=== PATIENT | female | born 1970 | race African-American/Black ===

== ENCOUNTER → 2016-06-08 | Outpatient (CLI) | payer BC ==
--- NOTE | 2016-06-08 16:54 | KCIC ---
PROCEDURE Bilateral screening mammogram HISTORY 45-year-old female presents for annual screening mammogram. COMPARISON March 06, 2015, November 09, 2011 FINDINGS Bilateral digital mammograms are obtained with CAD. The breasts are heterogeneously dense, which can obscure small masses (tissue density C). No dominant suspicious mass, suspicious microcalcifications, or architecture distortion is identified in either breast. IMPRESSION Benign findings. Recommend screening mammogram in 1 year. BI-RADS category 2: Benign findings The patient information was entered into a reminder system with a target due date for the next mammogram. Mammography is not 100% sensitive in detecting breast cancer. Therefore, a self breast exam and a clinical breast exam are very important. A negative mammogram does not negate a clinically suspicious finding and should not result in a delay in biopsying a clinically suspicious abnormality. Electronically signed by: Patience Lamar (Jun 08, 2016 16:53:44)
== END | disposition home or self-care (01) ==
LOC: KCIC MAMMO 15:05
PROVIDERS: ATTEND Obstetrics & Gynecology
DX: Z12.31 Encounter for screening mammogram for malignant neoplasm of breast (principal)
CPT/HCPCS: G0202; 77067

== ENCOUNTER 2017-06-28 20:45 | Emergency (ER) | payer BC ==
[2017-06-28] MEDS: IV NORMAL SALINE 1000ML BAG 1,000 ML IV ×2 (21:00)
[2017-06-28 21:10] LABS: POC GLUCOSE 85 mg/dL (70-99)
[2017-06-28 21:39] LABS: ADD MAN DIFF? NO
[2017-06-28 21:43] LABS: BASO % 0 % (0-3); EOS # 0.2 x10^3/uL (0.0-0.7); EOS % 2 % (0-3); HEMATOCRIT 37.7 % (36.0-47.0); HEMOGLOBIN 12.5 g/dL (12.0-15.5); LYMPH # 2.9 x10^3/uL (1.0-4.8); LYMPH % 32 % (24-48); MEAN CORPUSCULAR HEMOGLOBIN 30 pg (25-35); MEAN CORPUSCULAR HGB CONC 33 g/dL (31-37); MEAN CORPUSCULAR VOLUME 90 fL (79-100); MONO # 0.8 x10^3/uL (0.0-1.1); MONO % 9 % (0-9); NEUT # 5.4 x10^3uL (1.8-7.7); NEUT % 58 % (31-73); PLATELET COUNT 279 x10^3/uL (140-400); RED BLOOD COUNT 4.21 x10^6/uL (3.50-5.40); RED CELL DISTRIBUTION WIDTH 14.1 % (11.5-14.5); WHITE BLOOD COUNT 9.3 x10^3/uL (4.0-11.0)
[2017-06-28 21:59] LABS: ANION GAP 7 (6-14); BLOOD UREA NITROGEN 14 mg/dL (7-20); BUN/CREATININE RATIO 18 (6-20); CARBON DIOXIDE 31 mmol/L (21-32); CHLORIDE 105 mmol/L (98-107); CREATININE 0.8 mg/dL (0.6-1.0); GFR 92.6; GLUCOSE 93 mg/dL (70-99); POTASSIUM 4.3 mmol/L (3.5-5.1); SODIUM 143 mmol/L (136-145)
[2017-06-28 22:01] LABS: ETHANOL < 10 mg/dL (0-10)
[2017-06-28 22:02] LABS: URINE HCG POC HCG NEGATIVE (Negative)
[2017-06-28 22:05] LABS: ALBUMIN 3.5 g/dL (3.4-5.0); ALK PHOS 78 U/L (46-116); ALT (SGPT) 21 U/L (14-59); AST (SGOT) 17 U/L (15-37); BILIRUBIN,URINE NEGATIVE (NEG); CLARITY,URINE CLEAR; COLOR,URINE YELLOW; GLUCOSE,URINE NEGATIVE (NEG); NITRITE,URINE NEGATIVE (NEG); PROTEIN,URINE NEGATIVE (NEG-TRACE); TOTAL BILIRUBIN 0.5 mg/dL (0.2-1.0); TOTAL PROTEIN 7.1 g/dL (6.4-8.2)
[2017-06-28 22:09] LABS: AMPHETAMINE/METHAMPHETAMINE NEG (NEG); BARBITURATES NEG (NEG); BENZODIAZEPINES NEG (NEG); CANNABINOIDS NEG (NEG); COCAINE NEG (NEG); ETHANOL, URINE NEG (NEG); METHADONE NEG (NEG); OPIATES NEG (NEG); PHENCYCLIDINE NEG (NEG)
[2017-06-28 22:09] LABS: TROPONINI < 0.017 ng/mL (0.000-0.055)
[2017-06-28 22:10] LABS: NT-PRO BNP 19 pg/mL (0-124)
[2017-06-28 22:15] LABS: BACTERIA,URINE 0 /HPF (0-FEW); SQUAMOUS EPITHELIAL CELL,UR MOD /LPF; WBC,URINE 0 /HPF (0-4)
== END 2017-06-28 23:15 | disposition home or self-care (01) ==
LOC: ER 20:45
DX: R41.82 Altered mental status, unspecified (principal); F41.9 Anxiety disorder, unspecified; F32.9 Major depressive disorder, single episode, unspecified
CPT/HCPCS: 36415; 70450; 80053; 80307; 81001; 81025; 82962; 83880; 84484; 85025; 93005; 96360; 99285-25; G0480; J7030